=== PATIENT | female | born 1965 | race American Indian/Alaskan Native ===

== ENCOUNTER 2018-11-12 07:27 | Day surgery (SDC) | payer OTHER ==
[2018-11-12] MEDS ORDERED: ECOTRIN PO ONE (08:15)
[2018-11-12 08:26] VITALS: BP 161/75
[2018-11-12 08:50] LABS: Basophils % (Auto) 0.4 % (0.0-1.8); Eosinophils # (Auto) 0.2 K/mm3 (0.0-0.4); Eosinophils % (Auto) 2.4 % (0.0-4.3); Hematocrit 33.2 % (30.3-42.9); Hemoglobin 10.9 gm/dl (10.1-14.3); Lymphocytes # (Auto) 2.4 K/mm3 (1.2-5.4); Lymphocytes % (Auto) 30.4 % (13.4-35.0); Mean Corpuscular HGB Conc 33 % (30-34); Mean Corpuscular Volume 84 fl (79-97); Monocytes # (Auto) 0.5 K/mm3 (0.0-0.8); Monocytes % (Auto) 5.9 % (0.0-7.3); Platelet Count 262 K/mm3 (140-440); Red Blood Count 3.94 M/mm3 (3.65-5.03); Red Cell Distribution Width 13.5 % (13.2-15.2)
[2018-11-12] MEDS ORDERED: NACL 0.9% 500 ML 500 ML IV SCH (09:00)
[2018-11-12 09:02] LABS: INR 1.05 (0.87-1.13)
[2018-11-12 09:03] LABS: Partial Thromboplastin Time 28.8 Sec. (24.2-36.6)
[2018-11-12 09:04] LABS: Calcium 9.2 mg/dL (8.4-10.2)
--- NOTE | 2018-11-12 10:08 | Event Note ---
Date: 11/12/18 The patient presented for outpatient cardiac catheterization, indication was abnormal thallium stress test and history of coronary artery disease. Preprocedure laboratory exam showed severe renal failure with creatinine of 5.6. The patient reports known history of chronic kidney disease, but not yet on dialysis. She follows up regularly with her outpatient haircutter. A review of her chart shows that in December 2017 creatinine was 3.7. Otherwise, patient is asymptomatic, no chest pain, no shortness of breath, no palpitations, looks and feels well. Recommendations: The cardiac catheterization procedure will be deferred due to severe risk of contrast nephropathy. The patient will be referred to our haircutter for further care of her severe renal failure, a copy of her current laboratories will be given to patient to visit with her haircutter in the next 3-5 days. Future cardiac catheterization will depend on clinical course and the progress of patient's renal disease.
== END 2018-11-12 07:28 | disposition home or self-care (01) ==
LOC: CATHLABREC 07:27
PROVIDERS: ATTEND Internal Medicine Cardiovascular Disease
DX: R94.31 Abnormal electrocardiogram [ECG] [EKG] (principal); E78.00 Pure hypercholesterolemia, unspecified; I10 Essential (primary) hypertension; D64.9 Anemia, unspecified; N28.89 Other specified disorders of kidney and ureter; Z53.8 Procedure and treatment not carried out for other reasons; Z79.899 Other long term (current) drug therapy; Z79.4 Long term (current) use of insulin; Z79.82 Long term (current) use of aspirin
CPT/HCPCS: 36415; 80048; 85025; 85610; 85730; 93005; 93010; J7040

== ENCOUNTER 2019-09-30 06:00 | Day surgery (SDC) | payer OTHER ==
[2019-09-30] MEDS: SODIUM CHLORIDE 0.9% 1000 ML 1,000 ML IV SCH ×2 (07:12→12:44)
[2019-09-30] MEDS ORDERED: ASPIRIN EC 325 MG TAB PO ONE (07:17)
[2019-09-30 07:21] LABS: Basophils % (Auto) 0.6 % (0.0-1.8); Eosinophils # (Auto) 0.1 K/mm3 (0.0-0.4); Eosinophils % (Auto) 1.5 % (0.0-4.3); Hematocrit 29.5 % (30.3-42.9); Hemoglobin 9.8 gm/dl (10.1-14.3); Lymphocytes # (Auto) 1.8 K/mm3 (1.2-5.4); Lymphocytes % (Auto) 24.4 % (13.4-35.0); Mean Corpuscular HGB Conc 33 % (30-34); Mean Corpuscular Volume 83 fl (79-97); Monocytes # (Auto) 0.5 K/mm3 (0.0-0.8); Monocytes % (Auto) 6.2 % (0.0-7.3); Platelet Count 251 K/mm3 (140-440); Red Blood Count 3.56 M/mm3 (3.65-5.03)
[2019-09-30 07:42] LABS: INR 0.94 (0.87-1.13)
[2019-09-30] MEDS ORDERED: SODIUM POLYSTYRENE 15 GM/60 ML ORAL LIQD PO ONE ×2 (09:30→17:04)
[2019-09-30] MEDS ORDERED: HEPARIN/NS 5000 UNIT/500ML 1,000 ML IR ONE (11:54)
[2019-09-30] MEDS ORDERED: VERAPAMIL 5 MG/2 ML INJ ONE (11:54)
[2019-09-30] MEDS: fentaNYL 100 MCG/2 ML INJ ONE ×2 (12:41→12:55)
[2019-09-30] MEDS: LIDOCAINE (2%) 20 MG/1 ML VIAL 20 ML MDV INFILTRATI ONE ×2 (12:42→12:57)
[2019-09-30] MEDS: MIDAZOLAM 2 MG/2 ML INJ ONE ×2 (12:42→12:55)
[2019-09-30] MEDS: NITROGLYCERIN SYRINGE 3 ML ONE ×2 (12:45→13:05)
[2019-09-30] MEDS: HEPARIN 10,000 UNITS/10 ML VIAL ONE ×2 (13:04→13:05)
--- NOTE | 2019-09-30 13:42 | Discharge Summary ---
Short Stay Discharge Plan Activity: advance as tolerated Diet: low fat, low cholesterol, low salt Wound: keep clean and dry Special Instructions: no heavy lifting (3 days) Follow up with: SCHUYLER MAC MD [Primary Care Provider] - 7 Days SILVER HOUSTON MD [Staff Physician] - 7 Days
--- NOTE | 2019-09-30 13:51 | Cardiac Catherization Report ---
CARDIAC CATHETERIZATION REPORT REASON FOR PROCEDURE: The patient is a 54-year-old woman with end-stage renal disease, awaiting placement of a PD catheter and possible renal transplant. She was referred for cardiac preoperative assessment. Prior history of coronary artery disease with coronary stent placement and a previous abnormal thallium stress test in 2019. PROCEDURES: 1. Left heart catheterization. 2. Selective left and right coronary angiography. 3. Sedation time: Start 1253 hours, end 1312 hours. DESCRIPTION OF PROCEDURE: The patient was prepped and draped in a sterile fashion after informed consent. The right radial cath site was prepped and draped after a negative Deion's test. The right radial artery was entered using Seldinger technique, followed by placement of 6-[place] hydrophilic sheath. Routine radial cocktail was administered via the sheath. Selective left and right coronary angiography was performed using a #3.5 left Harinder, and a #4 right Harinder. The catheters were now removed, sheath removed, and hemostasis achieved using manual compression. The patient was returned to the postprocedure unit in stable condition. There were no complications. FINDINGS: HEMODYNAMICS: Ascending aortic pressure was 147/81. Left ventricular catheterization and angiography was deferred due to end-stage renal failure. CORONARY ANGIOGRAPHY: Left main coronary artery was free of significant disease. There was mild atherosclerosis of the proximal to mid left anterior descending artery, and up to 20% luminal stenosis. The diagonal branches contained mild luminal irregularities. The circumflex artery and its obtuse marginal branches contained mild luminal irregularities. The right coronary artery was a relatively small caliber, but dominant vessel. A stent was visible in the distal AV groove right coronary artery, located between the acute margin and the origin of the posterior descending branch. The right coronary artery was completely occluded in its mid and distal AV groove segment including the stented segment. There was no forward flow. There was collateralization of the distal right coronary segments including the posterior descending branch and the posterolateral branch from the left coronary system. CONCLUSION: 1. Occluded right coronary artery, within the previously stented segment. Distal vessel is filled by collaterals from the left coronary system. 2. Otherwise, nonobstructive irregularities of the left coronary system. 3. Total contrast used was 25 mL of Visipaque. RECOMMENDATION: 1. Medical therapy and risk factor modification for chronic total occlusion of the right coronary artery. 2. Echocardiography for left ventricular function and valvular function assessment. 3. The patient is a [id number] risk for noncardiac surgery as planned. JOB# [id number] [facility]S
[2019-09-30] MEDS ORDERED: DEXTROSE 50% IN WATER (25GM) 50 ML SYRINGE IV ONE ×4 (15:16→19:20)
[2019-09-30] MEDS ORDERED: INSULIN REGULAR, HUMAN 100 UNITS/1 ML IV ONE ×2 (15:16→17:05)
[2019-09-30] MEDS ORDERED: INSULIN REGULAR, HUMAN 100 UNITS/1 ML ONE (15:21)
[2019-09-30] MEDS ORDERED: SODIUM BICARB 8.4% 50 MEQ/50 ML SYRINGE IV ONE (17:05)
[2019-09-30 19:00] VITALS: BP 135/66
== END 2019-09-30 20:12 | disposition home or self-care (01) ==
LOC: CATHLABREC 06:00 → CATH 06:00 → CATHLABREC 20:12
PROVIDERS: ATTEND Internal Medicine Cardiovascular Disease
DX: I25.10 Atherosclerotic heart disease of native coronary artery without angina pectoris (principal); R94.39 Abnormal result of other cardiovascular function study; I12.0 Hypertensive chronic kidney disease with stage 5 chronic kidney disease or end stage renal disease; N18.6 End stage renal disease; E78.00 Pure hypercholesterolemia, unspecified; Z79.899 Other long term (current) drug therapy; Z98.890 Other specified postprocedural states; Z95.5 Presence of coronary angioplasty implant and graft; Z83.3 Family history of diabetes mellitus; Z82.49 Family history of ischemic heart disease and other diseases of the circulatory system; Z88.8 Allergy status to other drugs, medicaments and biological substances
CPT/HCPCS: 36415; 80048; 82947; 82962; 84132; 85025; 85610; 85730; 93005; 93454; 96360; 96361; 96374; 96375; 96376; 99156; C1894; J1644; J2250; J3010; J7030; J1815; Q9967